=== PATIENT | female | born 1950 ===

== ENCOUNTER 2017-07-04 18:46 | Inpatient (IN) | payer OTHER ==
[~2017-07-04] VITALS: Ht 162.6 cm; Wt 74.4 kg
[2017-07-13] MEDS ORDERED: SYNTHROID50 MCG PO (14:40)
[2017-07-13] MEDS ORDERED: METOPROLOL ER-1 EAC1 PO (14:41)
[2017-07-13] MEDS ORDERED: AVAPRO150 MG PO (14:41)
[2017-07-13] MEDS ORDERED: ZOCOR20 MG PO (14:42)
== END 2017-07-23 15:21 | disposition home or self-care (01) | DRG 331 ==
LOC: ADM 07-12 11:45 → EDSTATUS 07-19 12:15 → AMB-ENDOS 07-19 12:15 → SURG 07-20 08:52 → O/R 07-20 08:52 → SURH 07-20 12:15 → SURG 07-20 14:38 → SURH 07-20 16:15 → SURG 07-23 15:21
PROVIDERS: Colon & Rectal Surgery
PROC: 0DTP4ZZ Resection of Rectum, Percutaneous Endoscopic Approach (ICD-10-PCS; 2017-07-20)
PROC: 07TC4ZZ Resection of Pelvis Lymphatic, Percutaneous Endoscopic Approach (ICD-10-PCS; 2017-07-20)
PROC: 0D1B4Z4 Bypass Ileum to Cutaneous, Percutaneous Endoscopic Approach (ICD-10-PCS; 2017-07-20)
PROC: 0DJD8ZZ Inspection of Lower Intestinal Tract, Via Natural or Artificial Opening Endoscopic (ICD-10-PCS; 2017-07-20)
PROC: 0DTE4ZZ Resection of Large Intestine, Percutaneous Endoscopic Approach (ICD-10-PCS; principal; 2017-07-20 16:15)
DX: C20 Malignant neoplasm of rectum (principal); R59.0 Localized enlarged lymph nodes; I11.9 Hypertensive heart disease without heart failure; E03.8 Other specified hypothyroidism; E78.00 Pure hypercholesterolemia, unspecified

== ENCOUNTER 2017-07-19 08:26 | Day surgery (SDC) | payer OTHER ==
[~2017-07-19 08:26] MED LIST: AVAPRO150 MG PO; METOPROLOL ER-1 EAC1 PO; SYNTHROID50 MCG PO; ZOCOR20 MG PO
== END 2017-07-19 16:00 | disposition home or self-care (01) ==
LOC: AMB-ENDOS 08:26 → EDSTATUS 07-20 11:45 → SURG 07-20 11:45
DX: C20 Malignant neoplasm of rectum (principal); K92.1 Melena

== ENCOUNTER 2017-12-01 12:30 | Inpatient (IN) | payer OTHER ==
[~2017-12-01] VITALS: Ht 170.2 cm; Wt 68.0 kg
== END 2017-12-10 18:10 | disposition home or self-care (01) | DRG 330 ==
LOC: SURH 12-08 06:05 → O/R 12-08 06:05 → SURH 12-08 07:00
PROVIDERS: Colon & Rectal Surgery
PROC: 0DQB4ZZ Repair Ileum, Percutaneous Endoscopic Approach (ICD-10-PCS; principal; 2017-12-08 07:00)
DX: Z43.2 Encounter for attention to ileostomy (principal); C20 Malignant neoplasm of rectum; E03.8 Other specified hypothyroidism; I11.9 Hypertensive heart disease without heart failure; E78.00 Pure hypercholesterolemia, unspecified; Z85.048 Personal history of other malignant neoplasm of rectum, rectosigmoid junction, and anus